=== PATIENT | male | born 1940 | race Hispanic/Latino ===

== ENCOUNTER 2017-04-30 18:33 | Emergency (ER) | payer MEDICARE ==
--- NOTE | 2017-04-30 23:10 | Emergency Department Report ---
Upper Extremity - HPI Chief Complaint: Extremity Injury, Upper Stated Complaint: NUMBNESS TO RIGHT ARM Time Seen by Provider: 04/30/17 22:51 Upper Extremity: Left Elbow Occurred When: Today Mechanism: Other (no trauma ) Symptoms: Yes Swelling, No Pain with Movement, No Deformity, No Limited Range of Movement, No Numbness, No Weakness, No Bruising/Ecchymosis, No Laceration or Abrasion Other History: 76 yo male with PMHX of COPD presenting to ED complaining of left elbow swelling. Pt states he initally thought the swelling was secondary to mosquito bite however over the last 24 hours he states the swelling has gotten larger than his normal bites. PT denies inciting factor such as trauma to elbow. Elbow is non painful, has full ROM, no change of color to skin, no break in the skin. 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 Pt denies SOB that was noted in triage note. he states his only complain is elbow swelling ED Review of Systems ROS: Stated complaint: NUMBNESS TO RIGHT ARM Other details as noted in HPI Comment: All other systems reviewed and negative Musculoskeletal: joint swelling. denies: back pain, arthralgia, myalgia Skin: denies: rash, lesions, change in color, change in hair/nails, pruritus, other ED Past Medical Hx - Past Medical History Previous Medical History?: No - Surgical History Additional Surgical History: arm, collar bone - Social History Smoking Status: Never Smoker Substance Use Type: None - Medications Home Medications: Home Medications Medication Instructions Recorded Confirmed Last Taken Type RX: Ibuprofen [Motrin 800 MG tab] 800 mg PO Q8HR PRN #20 tablet 04/30/17 Unknown Rx Upper Extremity Exam - Exam General: Vital signs noted. No distress. Alert and acting appropriately. Head and Torso: No HEENT Abnormality, No Neck Tenderness, No Chest/Lungs Abnormality, No Abdominal Tenderness, No Back Tenderness Shoulder Exam: Yes Normal Range of Motion in Shoulder, No Shoulder Tenderness, No Clavicle Tenderness, No Shoulder Deformity, No AC Joint Tenderness Arm Exam: No Arm/Humerus Tenderness, No Arm Deformity Elbow: Yes Normal Range of Motion in Elbow, Yes Elbow Deformity (pt has swelling to olecrenon area, no change of color of skin, no trauma to skinm, full ROM of elbow), No Elbow Tenderness Forearm: No Forearm Tenderness, No Forearm Deformity, No Pain with Pronation, No Pain with Supination Wrist: No Wrist Tenderness ( 2+ radial pulses BL ), No Normal ROM in Wrist, No Wrist Deformity, No Snuffbox Tenderness, No Pain with Axial Thumb Compression Hand: No Hand Tenderness, No Hand Deformity, No Digit Tenderness, No Normal ROM in Digit(s), No Digit(s) Deformity, No Tendon Dysfunction CMS Exam: No Broken Skin, No Normal Distal Pulses, No Normal Capillary Refill, No Normal Distal Sensation ED Course Vital Signs 04/30/17 18:54 Temperature 97.8 F Pulse Rate 92 H Respiratory 24 Rate Blood Pressure 121/75 O2 Sat by Pulse 92 Oximetry - Reevaluation(s) Reevaluation #1: 04/30/17 23:11 pt states he is not in pain ED Medical Decision Making - Medical Decision Making 76 yo male with PMHX of COPD presenting to ED complaining of left elbow swelling. Swelling is likely secondary to olecranon bursitis. I have low suspicion for septic joint as patient has no: Fevers/chills, erythema, painful range of motion of the joint. i have low suspicion for fracture as pt denies trauma, - Differential Diagnosis septic joint, gout, cellulitis, abscess Critical Care Time: No Critical care attestation.: If time is entered above; I have spent that time in minutes in the direct care of this critically ill patient, excluding procedure time. ED Disposition Clinical Impression: Olecranon bursitis of left elbow Disposition: DC-01 TO HOME OR SELFCARE Is pt being admited?: No Does the pt Need Aspirin: No Condition: Stable Instructions: Elbow Bursitis (ED) Prescriptions: RX: Ibuprofen [Motrin 800 MG tab] 800 mg PO Q8HR PRN #20 tablet PRN Reason: Analgesia Referrals: PRIMARY MD JORGE [Primary Care Provider] - 3-5 Days NITHYA ROBLERO MD [Staff Physician] - 3-5 Days Ghulam SPANN MD [Referring] - 3-5 Days Forms: Work/School Release Form(ED)
[2017-05-01 06:11] VITALS: BP 125/77
== END 2017-04-30 23:30 | disposition home or self-care (01) ==
LOC: ED 18:33
DX: M70.22 Olecranon bursitis, left elbow (principal)
CPT/HCPCS: 99282